=== PATIENT | female | born 1965 | race Caucasian/White ===

== ENCOUNTER 2021-11-05 09:23 | Inpatient (IN) | payer MEDICAID, SELFPAY ==
[~2021-11-05] VITALS: Ht 162.6 cm; Wt 62.6 kg
--- NOTE | 2021-11-05 09:30 | NUR ---
TO ER [facility]
[2021-11-05] MEDS ORDERED: NACL 0.9% 1,000 ML IV ONE ×2 (09:35→10:45)
[2021-11-05] MEDS ORDERED: KETAMINE 10 MG/ML UD SYR **ER IVP ONE (09:35)
[2021-11-05] MEDS ORDERED: ONDANSETRON 4 MG/2 ML VIAL IVP ONE (09:35)
[2021-11-05] MEDS ORDERED: MORPHINE SULFATE 4 MG/ML SYR IVP ONE (09:35)
--- NOTE | 2021-11-05 09:54 | NUR ---
PT TAKEN TO CT VIA RJUAN.
--- NOTE | 2021-11-05 10:29 | NUR ---
PT TO [facility] [place] VIA NAN.
[2021-11-05] MEDS ORDERED: HYDROmorphone PFS 2 MG/ML SYR IVP ONE (10:45)
[2021-11-05 11:01] LABS: ALBUMIN 3.6 g/dL (3.4-5.0); ANION GAP 15.5 (8-16); BASOPHILS % (AUTO) 0.5 % (0.0-2.0); CARBON DIOXIDE 24.6 mmol/L (21-32); CREATININE 0.6 mg/dL (0.6-1.3); EOSINOPHILS % (AUTO) 0.2 % (0.0-4.0); HEMATOCRIT 28.8 % (36-48); LYMPHOCYTES # (AUTO) 1.3 K/uL (2.5-16.5); LYMPHOCYTES % (AUTO) 15.5 % (20.5-51.1); MEAN CORPUSCULAR HEMOGLOBIN 21 pg (27-31); MEAN CORPUSCULAR HGB CONC 31 g/dL (33-37); MEAN CORPUSCULAR VOLUME 65.8 fL (80-94); MONOCYTES # (AUTO) 0.3 K/uL (0.8-1.0); MONOCYTES % (AUTO) 3.6 % (1.7-9.3); NEUTROPHILS # (AUTO) 6.8 K/uL (1.8-7.7); NEUTROPHILS % (AUTO) 80.2 % (42.2-75.2); PLATELET COUNT (AUTO) 275 K/uL (140-450); POTASSIUM 3.1 mmol/L (3.5-5.1); RED BLOOD CELL COUNT(AUTO) 4.37 MIL/uL (4.20-5.40); RED CELL DISTRIBUTION WIDTH 24.1 % (11.6-13.7); TOTAL BILIRUBIN 0.3 mg/dL (0.0-1.0); WHITE BLOOD COUNT (AUTO) 8.5 K/uL (4.8-10.8)
--- NOTE | 2021-11-05 11:15 | NUR ---
PT TAKEN TO XR VIA NAN.
[2021-11-05] MEDS ORDERED: ONDANSETRON 4 MG/2 ML VIAL IM/IVP PRN (11:40)
[2021-11-05] MEDS ORDERED: guaiFENesin DM 200/20 MG-10 ML 10 ML UDC PO PRN (11:40)
[2021-11-05] MEDS ORDERED: ZOLPIDEM 5 MG TAB PO PRN (11:40)
[2021-11-05] MEDS ORDERED: DOCUSATE SODIUM 100 MG GELCAP PO PRN (11:40)
[2021-11-05] MEDS ORDERED: POTASSIUM CHLORIDE 10 MEQ TABER PO PRN (11:40)
[2021-11-05] MEDS: DEXT 5% /NACL 0.9% 1,000 ML IV SCH ×2 (12:02→21:46)
--- NOTE | 2021-11-05 13:44 | NUR ---
MOVED TO ER BED 1
[2021-11-05 15:23] LABS: CHOL/HDL RATIO 2.8 (1-4.5); FREE T4 (FREE THYROXINE) 1.01 ng/dL (0.76-1.46); MAGNESIUM 1.9 mg/dL (1.8-2.4); PHOSPHORUS 3.3 mg/dL (2.5-4.9); THYROID STIMULATING HORMONE 2.75 uIU/mL (0.34-3.74)
--- NOTE | 2021-11-05 19:49 | NUR ---
ASSISTED ONTO BEDPAN
[2021-11-05] MEDS: MORPHINE SULFATE 2 MG/ML SYR IVP PRN (20:22)
--- NOTE | 2021-11-05 22:00 | NUR ---
BP LABILE AND LOW. PT C/O PAIN. SMALL AMOUNT ICE CHIPS GIVEN
[2021-11-05 22:57] LABS: BARBITURATE, URINE NEGATIVE ng/ml (NEG <=200); BENZODIAZEPINE, URINE NEGATIVE ng/mL (NEG <=200); CANNABINOID, URINE NEGATIVE ng/mL (NEG <=50); COCAINE, URINE NEGATIVE ng/mL (NEG <=300)
[2021-11-05 22:58] LABS: OPIATE, URINE POSITIVE ng/mL (NEG <=2000); PHENCYCLIDINE SCREEN,URINE NEGATIVE ng/mL (NEG <=25)
[2021-11-05 23:02] LABS: APPEARANCE,URINE CLEAR (CLEAR); BILIRUBIN,URINE 1+ (NEGATIVE); BLOOD, URINE NEGATIVE (NEGATIVE); COLOR,URINE YELLOW (YELLOW); LEUKOCYTE ESTERASE ,URINE NEGATIVE (NEGATIVE); NITRITE, URINE NEGATIVE (NEGATIVE); UGLUCOSE NEGATIVE (NEGATIVE)
--- NOTE | 2021-11-06 | NUR ---
UA SENT TO LAB
--- NOTE | 2021-11-06 02:00 | NUR ---
ASSISTED ONTO BEDPAN. HAD 1 LIQUID STOOL
[2021-11-06] MEDS: DEXT 5% /NACL 0.9% 1,000 ML IV SCH ×4 (04:33→21:06)
[2021-11-06] MEDS: MORPHINE SULFATE 2 MG/ML SYR IVP PRN ×2 (04:36→22:19)
--- NOTE | 2021-11-06 04:40 | NUR ---
AM LABS DRAWN
[2021-11-06 06:55] LABS: ANION GAP 10.8 (8-16); CARBON DIOXIDE 27.3 mmol/L (21-32); CREATININE 0.5 mg/dL (0.6-1.3); POTASSIUM 3.1 mmol/L (3.5-5.1)
[2021-11-06 07:07] LABS: T4 (THYROXINE) 6.9 ug/dL (4.5-12.0)
[2021-11-06 07:13] LABS: BASOPHILS % (AUTO) 0.4 % (0.0-2.0); EOSINOPHILS # (AUTO) 0.1 K/uL (0-0.4); EOSINOPHILS % (AUTO) 1.4 % (0.0-4.0); HEMATOCRIT 24.8 % (36-48); HEMOGLOBIN 7.7 g/dL (12.0-16.0); LYMPHOCYTES % (AUTO) 28.4 % (20.5-51.1); MEAN CORPUSCULAR HEMOGLOBIN 21 pg (27-31); MEAN CORPUSCULAR HGB CONC 31 g/dL (33-37); MEAN CORPUSCULAR VOLUME 66.6 fL (80-94); MONOCYTES # (AUTO) 0.2 K/uL (0.8-1.0); MONOCYTES % (AUTO) 6.4 % (1.7-9.3); NEUTROPHILS # (AUTO) 2.3 K/uL (1.8-7.7); NEUTROPHILS % (AUTO) 63.4 % (42.2-75.2); PLATELET COUNT (AUTO) 232 K/uL (140-450); RED BLOOD CELL COUNT(AUTO) 3.71 MIL/uL (4.20-5.40); WHITE BLOOD COUNT (AUTO) 3.7 K/uL (4.8-10.8)
[2021-11-06] MEDS: ACETAMINOPHEN 325 MG TAB PO PRN ×2 (08:46→16:25)
[2021-11-06] MEDS: PANTOPRAZOLE 40 MG INJ VIAL IVP SCH (09:00)
[2021-11-06] MEDS: PANTOPRAZOLE 40 MG TABEC PO SCH (09:00)
[2021-11-06] MEDS: HYDROcodone/APAP 7.5/325 MG 1 TAB PO PRN (12:53)
--- NOTE | 2021-11-06 15:27 | NUR ---
PATIENT HAS BEEN SCREENED AND CATEGORIZED HIGH NUTRITION RISK. PATIENT WILL BE SEEN WITHIN 1-2 DAYS OF ADMISSION. SOURA[address] MEEKS RD
--- NOTE | 2021-11-06 19:21 | NUR ---
REPORT GIVEN TO ELVIA ROLLINS. ALL CARE TRANSFERRED AT THIS TIME.
--- NOTE | 2021-11-06 19:45 | NUR ---
[facility] Pierre mejias in [facility] - 11/06/21 at 2217 by JAKE INSULIN GTT BEGUN
--- NOTE | 2021-11-06 20:00 | NUR ---
AMBULATED TO BR WITH STEADY GAIT. PT STATES SHE IS FEELING MUVH BETTER
--- NOTE | 2021-11-07 | NUR ---
resting in bed with eyes closed, respirations regular and unlabored.
--- NOTE | 2021-11-07 03:00 | NUR ---
AWAKE, DENIES PAIN AT THIS TIME. WARM BLANKET GIVEN
[2021-11-07 06:54] LABS: ANION GAP 11.4 (8-16); CARBON DIOXIDE 27.4 mmol/L (21-32); CREATININE 0.5 mg/dL (0.6-1.3)
[2021-11-07 07:09] LABS: POTASSIUM 2.8 mmol/L (3.5-5.1)
[2021-11-07 07:23] LABS: BASOPHILS % (AUTO) 0.8 % (0.0-2.0); EOSINOPHILS % (AUTO) 1.2 % (0.0-4.0); HEMATOCRIT 24.8 % (36-48); HEMOGLOBIN 7.6 g/dL (12.0-16.0); LYMPHOCYTES # (AUTO) 0.9 K/uL (2.5-16.5); LYMPHOCYTES % (AUTO) 23.2 % (20.5-51.1); MEAN CORPUSCULAR HEMOGLOBIN 21 pg (27-31); MEAN CORPUSCULAR HGB CONC 31 g/dL (33-37); MEAN CORPUSCULAR VOLUME 66.4 fL (80-94); MONOCYTES # (AUTO) 0.3 K/uL (0.8-1.0); MONOCYTES % (AUTO) 7.9 % (1.7-9.3); NEUTROPHILS # (AUTO) 2.7 K/uL (1.8-7.7); NEUTROPHILS % (AUTO) 66.9 % (42.2-75.2); PLATELET COUNT (AUTO) 224 K/uL (140-450); RED BLOOD CELL COUNT(AUTO) 3.73 MIL/uL (4.20-5.40); RED CELL DISTRIBUTION WIDTH 23.4 % (11.6-13.7)
--- NOTE | 2021-11-07 09:00 | NUR ---
Patient appears to be resting comfortably in bed. Vital Signs within normal limits. Respirations even and unlabored. NGT removed per MD order. All light in reach and all safety measures in place.
[2021-11-07] MEDS: PANTOPRAZOLE 40 MG INJ VIAL IVP SCH (09:17)
[2021-11-07] MEDS: PANTOPRAZOLE 40 MG TABEC PO SCH (09:17)
--- NOTE | 2021-11-07 11:38 | NUR ---
11/07/21 RD INITIAL ASSESSMENT COMPLETED PLEASE REFER TO NUTRITION ASSESSMENT UNDER CARE ACTIVITY FOR ESTIMATED NUTRITIONAL NEEDS. 1. CONTINUE CLEAR LIQUID DIET TOLERATED 2. WHEN MEDICALLY APPROPRIATE, ADVANCE TO LOW FAT DIET IF PANCREATITIS IS CONFIRMED TOLERATED 3. RD TO FOLLOW-UP 2-3 DAYS, HIGH RISK REVIEWED BY YAIMLE ANGEL RD
--- NOTE | 2021-11-07 12:10 | NUR ---
Patient appears to be resting comfortably in bed. Vital Signs within normal limits. Respirations even and unlabored. Call light in reach. All needs met
[2021-11-07] MEDS: DEXT 5% /NACL 0.9% 1,000 ML IV SCH ×2 (13:27→20:57)
--- NOTE | 2021-11-07 15:06 | NUR ---
Patient appears to be resting comfortably in bed. Vital Signs within normal limits. Respirations even and unlabored. Updated pt on plan and remains afebrile, RA. Call light in reach
--- NOTE | 2021-11-07 18:40 | NUR ---
Per. Dr Mckeon, pt can go home if she can tolerate a solid meal.
--- NOTE | 2021-11-07 19:15 | NUR ---
RECIEVED REPORT FROM DAY SHIFT RN TO ASSUME CARE OF PT.
--- NOTE | 2021-11-07 19:20 | NUR ---
PT LYING IN BED WITH EYES OPEN. ALERT AND ORIENTED X4 TO PERSON, PLACE AND TIME. EQUAL RISE AND FALL OF CHEST. NO ACUTE DISTRESS NOTED. PT EATING A SANDWHICH, DENIES N/V AT TIME OF ASSESSMENT. WILL CONTINUE TO MONITOR PT.
--- NOTE | 2021-11-07 19:21 | NUR ---
Pt report given to ELVIA Mc. Transfer of care at this time.
[2021-11-07] MEDS: ACETAMINOPHEN 325 MG TAB PO PRN (19:58)
--- NOTE | 2021-11-07 23:16 | NUR ---
SPOKE WITH DR. SENA CONCERNING PT PO CHALLANGE. PT WAS ABLE TO KEEP SOLID FOODS DOWN WITHOUT VOMITING. DR. SENA NOTIFIED. OKAYED PT TO START DC PROCESS.
--- NOTE | 2021-11-08 02:25 | NUR ---
PT COMPLAINING OF PAIN, RATES PAIN 6/10. PT REQUESTS PAIN MEDS. PT MEDICATED PER MD ORDERS, SEE EMAR.
[2021-11-08] MEDS: HYDROcodone/APAP 7.5/325 MG 1 TAB PO PRN (02:38)
--- NOTE | 2021-11-08 03:30 | NUR ---
PT SLEEPING, RELAXED.
--- NOTE | 2021-11-08 04:00 | NUR ---
PT LYING IN BED WITH EYES CLOSED. APPEARS TO BE SLEEPING. EQUAL RISE AND FALL OF CHEST. NO ACUTE DISTRESS NOTED. ALL VS ARE STABLE. WILL CONTINUE TO MONITOR PT.
[2021-11-08] MEDS: DEXT 5% /NACL 0.9% 1,000 ML IV SCH (04:01)
--- NOTE | 2021-11-08 05:21 | NUR ---
RN TO PT ROOM TO ASK PT ABOUT RIDE HOME. PT STATES THAT HER JOB WILL PICK HER UP AT 0800. CHARGE NURSE NOTIFIED.
[2021-11-08 06:00] VITALS: BP 128/70
--- NOTE | 2021-11-08 06:00 | NUR ---
Patient discharged with v/s stable. Written and verbal after care instructions given and explained. Patient verbalized understanding. Ambulatory with steady gait. All questions addressed prior to discharge. Advised to follow up with PMD.
== END 2021-11-08 06:00 | disposition home or self-care (01) | DRG 247 ==
LOC: MED 09:23 → MMU 12:10 → MTU 11-07 06:18 → MMU 11-07 23:38
PROVIDERS: ADMIT Family Medicine; ATTEND Family Medicine
PROC: 0D9670Z Drainage of Stomach with Drainage Device, Via Natural or Artificial Opening (ICD-10-PCS; principal; 2021-11-05)
DX: K56.609 Unspecified intestinal obstruction, unspecified as to partial versus complete obstruction (principal); G93.41 Metabolic encephalopathy; K85.90 Acute pancreatitis without necrosis or infection, unspecified; E87.0 Hyperosmolality and hypernatremia; K56.1 Intussusception; Z60.2 Problems related to living alone; E86.0 Dehydration; K44.9 Diaphragmatic hernia without obstruction or gangrene; D64.9 Anemia, unspecified; E87.6 Hypokalemia; Z90.49 Acquired absence of other specified parts of digestive tract; Z98.84 Bariatric surgery status
CPT/HCPCS: 36415; 43753; 71045; 80048; 80053; 80305; 81003; 82150; 83036; 83605; 83690; 83735; 83880; 84100; 84436; 84439; 84443; 84479; 84484; 85025; 85610; 85730; 86886; 86900; 86901; 87040; 93005; 96361; 96374; 96375; 99291; C9113; J1170; J2270; J2405